=== PATIENT | male | born 1980 | race Caucasian/White ===

== ENCOUNTER 2020-06-29 15:39 | Emergency (ER) | payer SELFPAY ==
[~2020-06-29] VITALS: Ht 157.5 cm; Wt 83.5 kg
[2020-06-29 15:46] VITALS: BP 129/87
--- NOTE | 2020-06-29 16:30 | NUR ---
39 Y/O M C/C UPPER ABDOMINAL PAIN RADIATING TO THE BACK, 0/10 WHEN RESTING, 5/10 WHEN COUGHING, PRESSURE SENSATION, REST ALLEVIATES, COUGH EXARCERBATES. COUGHING AND ABDONIMAL PAIN X 1 DAY. DENIES DYSURIA, CONSTIPATION, CHEST PAIN, DYSPNEA. ALLERGIES PNC. NO HX. NO RX. NO NVD. SIDE RAIL X1
--- NOTE | 2020-06-29 16:39 | NUR ---
PT AMBULATED TO RESTROOM
[2020-06-29 17:34] LABS: BASOPHILS % (AUTO) 0.7 % (0.0-2.0); EOSINOPHILS % (AUTO) 0.1 % (0.0-4.0); HEMATOCRIT 46.9 % (36-52); HEMOGLOBIN 15.8 g/dL (12.0-18.0); LYMPHOCYTES % (AUTO) 20.5 % (20.5-51.1); MEAN CORPUSCULAR HEMOGLOBIN 30 pg (27-31); MEAN CORPUSCULAR HGB CONC 34 g/dL (33-37); MEAN CORPUSCULAR VOLUME 89.6 fL (80-94); MONOCYTES # (AUTO) 0.7 K/uL (0.8-1.0); MONOCYTES % (AUTO) 16.1 % (1.7-9.3); NEUTROPHILS # (AUTO) 2.9 K/uL (1.8-7.7); NEUTROPHILS % (AUTO) 62.6 % (42.2-75.2); PLATELET COUNT (AUTO) 205 K/uL (140-450); RED BLOOD CELL COUNT(AUTO) 5.24 MIL/uL (4.20-6.10); WHITE BLOOD COUNT (AUTO) 4.6 K/uL (4.8-10.8)
[2020-06-29 17:51] LABS: ALBUMIN 3.8 g/dL (3.4-5.0); CARBON DIOXIDE 28.3 mmol/L (21-32); CREATININE 1.1 mg/dL (0.6-1.3); POTASSIUM 3.3 mmol/L (3.5-5.1); TOTAL BILIRUBIN 0.4 mg/dL (0.0-1.0)
--- NOTE | 2020-06-29 18:20 | NUR ---
Patient discharged with v/s stable. Written and verbal after care instructions given and explained. Patient alert, oriented and verbalized understanding of instructions. Ambulatory with steady gait. All questions addressed prior to discharge. ID band removed. Patient advised to follow up with PMD. Rx of PEPCID AND ZOFRAN given. Patient educated on indication of medication including possible reaction and side effects. Opportunity to ask questions provided and answered.
[2020-06-29 18:21] VITALS: BP 138/65
== END 2020-06-29 18:20 | disposition home or self-care (01) ==
LOC: MED 15:39
DX: R10.13 Epigastric pain (principal); Z88.0 Allergy status to penicillin
CPT/HCPCS: 36415; 76705; 80053; 83690; 84484; 85025; 99284; Q0092